=== PATIENT | female | born 1990 ===

== ENCOUNTER → 2024-06-25 13:02 | Outpatient (CLI) | payer OTHER ==
[2024-06-27 10:04] LABS: RUBELLA IGG 1.96 index (Immune >0.99); VARICELLA ZOSTER VIRUS IGG Reactive (Non Reactive)
== END | disposition home or self-care (01) ==
LOC: LAB 13:02
PROVIDERS: ATTEND Obstetrics & Gynecology Gynecology
DX: Z23 Encounter for immunization (principal)